=== PATIENT | male | born 2000 | race African-American/Black ===

== ENCOUNTER 2022-01-14 14:19 | Emergency (ER) | payer OTHER, SELFPAY ==
[2022-01-14 14:33] VITALS: BP 126/68; PULSE 83; RESP 16; TEMP 37; O2SAT 100
--- NOTE | 2022-01-14 15:10 | ED.EAR ---
HPI - Ear Problem General Chief complaint: Ear Stated complaint: Right Ear Pain Time Seen by Provider: 01/14/22 15:11 History of Present Illness HPI Narrative: Mariah Vazquez is a 21 yo male with muffling in R ear. Started yesterday; denies pain-patient states that he has been using warm soaks to ear only Related Data Allergies Allergy/AdvReac Type Severity Reaction Status Date / Time No Known Allergies Allergy Verified 01/14/22 14:37 Review of Systems Review of Systems: CONSTITUTIONAL: Denies fever, chills, sweats. EYES: Denies visual changes, redness, discharge. ENT: Denies rhinorrhea, congestion, sore throat, right ear congestion no otalgia. CARDIOVASCULAR: Denies chest pain, palpitations, edema. RESPIRATORY: Denies dyspnea, wheezing, cough GASTROINTESTINAL: Denies abdominal pain, nausea, vomiting, diarrhea. GENITOURINARY: Denies dysuria, hematuria, abnormal discharge SKIN: Denies rash or itching. NEUROLOGIC: Denies numbness, or focal weakness. PSYCHIATRIC: Denies anxiety or depression. PMFSH Social History Social History (Updated 01/14/22 @ 16:12 by Hillary Shea CNP) Smoking status: Never smoker Alcohol intake: never Comments At time of signature, I agree with nursing past medical, surgical, social and family history. There is no relevant family history pertinent to the presenting complaint. Exam Narrative: GENERAL: This is a well-nourished, well-developed patient, in mild distress. HEAD: normocephalic, atraumatic. EYES: Sclera clear/white. Vision is grossly intact. EARS: External ears normal, auditory canals erythema on right with cerumen and without drainage, TMs normal not visualized. Hearing grossly intact. NOSE: External nose normal without nasal discharge, nares without redness, no rhinorrhea. THROAT: Mucous membranes moist, NECK: Neck supple, non-tender CARDIOVASCULAR: Regular rate and rhythm without murmurs, gallops, or rubs. RESPIRATORY: Clear to auscultation. Breath sounds equal bilaterally. No wheezes, rales, or rhonchi. GASTROINTESTINAL: Abdomen soft, non-tender, SKIN: warm, intact with no suspicious lesions or rash, good texture and turgor. NEURO: awake, alert, and oriented to person, place and time. There were no obvious focal neurologic abnormalities. Steady gait EXTREMITIES: Normal range of motion. BACK: Nontender without deformity Course Course Emergency Course: R ear congestion and muffling Started on polymixin and debrox - given instructions Level of Care: Express Care Visit Vital Signs Vital signs: Vital Signs Temperature 98.6 F 01/14/22 14:33 Pulse Rate 83 01/14/22 14:33 Respiratory Rate 16 01/14/22 14:33 Blood Pressure 126/68 01/14/22 14:33 Pulse Oximetry 100 01/14/22 14:33 Oxygen Delivery Room Air 01/14/22 14:33 Temperature 98.6 F 01/14/22 14:33 Pulse Rate 83 01/14/22 14:33 Respiratory Rate 16 01/14/22 14:33 Blood Pressure 126/68 01/14/22 14:33 Pulse Oximetry 100 01/14/22 14:33 Oxygen Delivery Room Air 01/14/22 14:33 Medical Decision Making Differential Diagnosis Differential Diagnosis: Otitis media versus otitis externa versus cerumen impaction versus eustachian tube dysfunction Vital Signs Vital Signs: Vital Signs Temperature 98.6 F 01/14/22 14:33 Pulse Rate 83 01/14/22 14:33 Respiratory Rate 16 01/14/22 14:33 Blood Pressure 126/68 01/14/22 14:33 Pulse Oximetry 100 01/14/22 14:33 Oxygen Delivery Room Air 01/14/22 14:33 Temperature 98.6 F 01/14/22 14:33 Pulse Rate 83 01/14/22 14:33 Respiratory Rate 16 01/14/22 14:33 Blood Pressure 126/68 01/14/22 14:33 Pulse Oximetry 100 01/14/22 14:33 Oxygen Delivery Room Air 01/14/22 14:33 Critical Care Time Critical Care Time Critical Care Time: No Discharge Plan Discharge Clinical Impression: Otitis externa, Cerumen in auditory canal on examination Patient Disposition: Home, Self-Care Conditio
== END 2022-01-14 15:33 | disposition home or self-care (01) ==
PROVIDERS: Emergency Provider Nurse Practitioner
DX: H66.91 Otitis media, unspecified, right ear (principal); H93.8X1 Other specified disorders of right ear
CPT/HCPCS: 99203; G0463